=== PATIENT | male | born 1955 | race Caucasian/White ===

== ENCOUNTER → 2019-10-13 | Outpatient (CLI) | payer OTHER, MEDICAID ==
--- NOTE | 2019-10-13 12:42 | KCIC ---
EXAM: Dual energy x-ray absorptiometry (DEXA). HISTORY: Fractures. Osteoporosis screening. COMPARISON: None. TECHNIQUE: Dual energy x-ray absorptiometry of the lumbar spine and right hip was performed. Calculation of bone mineral density based on standard deviations above or below the expected young adult normal value (T-score) was completed. FINDINGS: The average bone mineral density in the 1st through 4th lumbar vertebrae is 1.079 g/cmxcm, corresponding with a T-score of -0.1. The average total bone mineral density in the right hip is 0.878 g/cmxcm, corresponding with a T-score of -1.0. IMPRESSION: 1. Borderline osteopenia measured at the right hip. 2. Normal bone mineral density measured at the lumbar spine. Note: Definitions established by the [employer] Organization: 1. Normal: T-score is -1.0 or above. 2. Osteopenia: T-score is between -1.0 and -2.5 . 3. Osteoporosis: T-score is -2.5 or below. Electronically signed by: Amarilis Humphrey MD (10/13/2019 12:39 PM) [id number]
== END ==
LOC: KCIC DEXA 11:27
PROVIDERS: ATTEND Nurse Practitioner Family
DX: Z13.820 Encounter for screening for osteoporosis (principal)
CPT/HCPCS: 77080

== ENCOUNTER → 2020-01-01 | Outpatient (CLI) | payer OTHER, MEDICAID ==
--- NOTE | 2020-01-01 15:18 | RAD ---
EXAM: 3 views left small finger DATE: 01/01/2020 12:00 AM INDICATION: Reason: SWOLLEN LITTLE FINGER SINCE May. Instructions: / History: COMPARISON: No Prior FINDINGS: Nodular soft tissue swelling seen about the small finger distal phalanx. No definite associated fracture, retained radiopaque foreign body or erosive/destructive change is identified. There is severe degenerative changes with secondary deformity centered at the midcarpal and radiocarpal joint with prominent cystic appearance. IMPRESSION: Soft tissue swelling about the small finger DIP/distal phalanx is nonspecific although given the midcarpal and radiocarpal predominant degenerative changes with prominent cystic change, gouty arthropathy is a consideration and soft tissue manifestations of gout about the small finger distal phalanx is a consideration. No definite erosive changes are seen to suggest erosive arthropathy. Electronically signed by: Dillan Mendez MD (01/01/2020 3:15 PM) [id number]
== END | disposition home or self-care (01) ==
LOC: RAD 13:54
PROVIDERS: ATTEND Nurse Practitioner Family
DX: M19.042 Primary osteoarthritis, left hand (principal)
CPT/HCPCS: 73120

== ENCOUNTER → 2021-07-26 | Outpatient (CLI) | payer OTHER ==
--- NOTE | 2021-07-26 09:55 | KCIC ---
EXAM: Abdomen sonogram. HISTORY: Hepatitis C. TECHNIQUE: Sonographic imaging of the abdomen was performed. COMPARISON: None. FINDINGS: The liver is enlarged. There is hepatic steatosis. No focal hepatic lesion is seen. The com mon bile duct is normal in caliber. The gallbladder is unremarkable. The right kidney is unremarkable . The pancreas, inferior vena cava and aorta are partially obscured due to bowel gas. IMPRESSION: 1. Hepatomegaly and hepatic steatosis. No focal hepatic lesion is seen. 2. Partially obscured midline structures due to bowel gas. Electronically signed by: Amarilis Humphrey MD (07/26/2021 9:53 AM) [id number]
== END ==
LOC: KCIC US 08:46
PROVIDERS: ATTEND Family Medicine
DX: R16.0 Hepatomegaly, not elsewhere classified (principal); K76.0 Fatty (change of) liver, not elsewhere classified; B18.2 Chronic viral hepatitis C
CPT/HCPCS: 76705

== ENCOUNTER → 2021-10-06 | Outpatient (CLI) | payer MEDICARE, OTHER ==
--- NOTE | 2021-10-06 14:06 | RAD ---
EXAM: ULTRASOUND ABDOMINAL AORTA. CLINICAL HISTORY: SMOKER; Mother has AAA; FM Hx AAA COMPARISON: None available. TECHNIQUE: The abdominal aorta was examined from the diaphragm to the proximal common iliac arteries. FINDINGS: Proximal aorta is obscured by bowel gas. The proximal abdominal aorta is not visualized. The mid abdominal aorta measures 2.0 cm in AP dimension. The distal abdominal aorta measures 1.8 cm in AP dimension. The common iliac arteries are not identified. There is no evidence of stenosis on Doppler. IMPRESSION: No evidence for aortic aneurysm. Electronically signed by: Taj Cowart MD (10/06/2021 2:04 PM) [id number]
--- NOTE | 2021-10-06 17:25 | RAD ---
CT LOW DOSE LUNG SCREEN HISTORY: Smoking history greater than 45 years at three quarters pack per day. COMPARISON: None. TECHNIQUE: Low-dose noncontrast CT scan of the chest. FINDINGS: Aorta and great vessels: Aneurysm of the ascending aorta measuring 4.7 cm diameter at the level of th e pulmonary outflow tract. Mild atherosclerotic calcification. Thyroid: No significant abnormalities. Mediastinum and ankita: Calcified subcarinal lymph nodes. No enlarged adenopathy. Esophagus: The visualized esophagus is normal. Heart: The heart is normal in size. There is no pericardial effusion. No coronary artery calcificatio n. Airways, Lungs and Pleura: Central airways are patent. Evaluation of the lung parenchyma is somewhat limited by motion artifact. No airspace consolidation. Posterior inferior right lung base 5 mm nodule (axial 240), may represent atelectasis in this location. Upper abdomen: Calcified granulomas in the spleen. Osseous structures and soft tissues: Anterior wedging of the T7 and T8 vertebral bodies. Multilevel e ndplate osteophytes. No acute osseous abnormality. IMPRESSION: 1. Ascending aortic aneurysm measuring 4.7 cm diameter. 2. Right lower lobe pulmonary nodule measuring 5 mm. LUNG RADS: Category 2S: Benign appearance or behavior. Follow up: Continue annual screening with LDCT in 12 months. Exposure: One or more of the following individualized dose reduction techniques were utilized for thi s examination: 1. Automated exposure control 2. Adjustment of the mA and/or kV according to patient size 3. Use of iterative reconstruction technique. Electronically signed by: Taj Cowart MD (10/06/2021 5:23 PM) [id number]
== END ==
LOC: US 10:23
PROVIDERS: ATTEND Family Medicine
DX: Z12.2 Encounter for screening for malignant neoplasm of respiratory organs (principal); R91.1 Solitary pulmonary nodule; I71.2 Thoracic aortic aneurysm, without rupture; Z87.891 Personal history of nicotine dependence
CPT/HCPCS: 71271; 76770